=== PATIENT | female | born 1970 | race Caucasian/White ===

== ENCOUNTER 2019-01-12 11:15 | Day surgery (SDC) | payer OTHER ==
[~2019-01-12] VITALS: Ht 167.6 cm; Wt 76.1 kg
[2019-01-12 12:00] VITALS: BP 123/82
[2019-01-12 12:05] LABS: HCG UR SG 1.006 (1.003-1.030)
[2019-01-12] MEDS ORDERED: OMEP-110 PO (12:12)
[2019-01-12] MEDS ORDERED: BUPR200T2 PO (12:12)
[2019-01-12] MEDS ORDERED: ANTIBIOTIC PO (12:12)
[2019-01-12] MEDS ORDERED: LACTATED RINGERS 1,000 ML IV SCH (12:17)
[2019-01-12] MEDS ORDERED: BUPIVACAINE/EPI 0.5% 1:200K ONE (13:27)
[2019-01-12] MEDS ORDERED: FENTANYL PF 250 MCG/5ML ONE (13:36)
[2019-01-12] MEDS ORDERED: MIDAZOLAM 1 MG/ML, 2ML ONE (13:36)
[2019-01-12] MEDS ORDERED: DEXAMETHASONE 4 MG/ML, 1ML ONE (13:38)
[2019-01-12] MEDS ORDERED: CEFAZOLIN 1,000 MG ONE (13:38)
[2019-01-12] MEDS ORDERED: NEOSTIGMINE 1 MG/ML, 10ML ONE (13:38)
[2019-01-12] MEDS ORDERED: ROCURONIUM 10MG/ML,5ML ONE (13:38)
[2019-01-12] MEDS ORDERED: ONDANSETRON 2MG/ML, 2ML ONE (13:38)
[2019-01-12] MEDS ORDERED: SUCCINYLCHOLINE 20 MG/ML, 10ML ONE (13:38)
[2019-01-12] MEDS ORDERED: GLYCOPYRROLATE 0.2MG/1ML, 5ML ONE (13:38)
[2019-01-12] MEDS ORDERED: PROPOFOL 10 MG/ML, 20ML ONE (13:38)
[2019-01-12] MEDS ORDERED: LIDOCAINE 4%, 4 ML SYR/CANN TP ONE (13:39)
[2019-01-12] MEDS ORDERED: LIDOCAINE-MPF 2% ,5ML ONE (13:39)
[2019-01-12] MEDS ORDERED: PROMETHAZINE 25 MG/ML, 1ML IV PRN (14:00)
[2019-01-12] MEDS ORDERED: PROMETHAZINE 25 MG SUPP PR PRN (14:00)
[2019-01-12] MEDS ORDERED: ONDANSETRON ODT 8 MG PO PRN (14:00)
[2019-01-12] MEDS ORDERED: ACETAMINOPHEN 325 MG TABLET PO PRN (14:00)
[2019-01-12] MEDS ORDERED: DIAZEPAM 5 MG/ML, 2ML IVPush PRN (14:00)
[2019-01-12] MEDS ORDERED: OXYcodone 5 MG/5 ML ORAL.SOL UDC PO PRN (14:00)
[2019-01-12] MEDS ORDERED: ONDANSETRON 2MG/ML, 2ML IV PRN (14:00)
[2019-01-12] MEDS ORDERED: HYDROmorphone 2 MG/ML, 1ML IVPush PRN (14:00)
[2019-01-12] MEDS ORDERED: SUGAMMADEX 200 MG/2 ML IVPush ONE (14:12)
[2019-01-12] MEDS ORDERED: ACETAMINOPHEN 650 MG/20.3 ML UDC ONE (14:25)
[2019-01-12] MEDS ORDERED: OXYcodone 5 MG/5 ML ORAL.SOL UDC ONE (14:25)
[2019-01-12] MEDS ORDERED: FENTANYL PF 100 MCG/2ML ONE (14:25)
[2019-01-12] MEDS: FENTANYL PF 100 MCG/2ML IV PRN ×3 (14:30→14:45)
[2019-01-12] MEDS ORDERED: morphine SULFATE 10 MG/ML, 1ML ONE (17:19)
[2019-01-12] MEDS ORDERED: morphine SULFATE 10 MG/ML, 1ML IVPush PRN (17:30)
== END 2019-01-12 18:00 | disposition home or self-care (01) ==
LOC: OUT 11:15
PROVIDERS: ATTEND Surgery
DX: K81.1 Chronic cholecystitis (principal); K66.0 Peritoneal adhesions (postprocedural) (postinfection); K21.9 Gastro-esophageal reflux disease without esophagitis; F41.9 Anxiety disorder, unspecified; Z72.89 Other problems related to lifestyle; Z79.899 Other long term (current) drug therapy; Z82.49 Family history of ischemic heart disease and other diseases of the circulatory system
CPT/HCPCS: 47562; 81025; 88304; J0330; J0690; J1100; J2250; J2405; J2704; J2710; J3010; J7120